=== PATIENT | female | born 1980 | race Two or more races ===

== ENCOUNTER 2022-12-10 11:49 | Outpatient (REF) | payer MEDICAID, SELFPAY ==
[2022-12-10 15:40] LABS: TSH reflex Free T4 6.78 uIU/mL (0.32-4.0)
[2022-12-10 16:10] LABS: Free T4 (Free Thyroxine) 0.81 ng/dL (0.71-1.85)
== END 2022-12-10 11:50 | disposition home or self-care (01) ==
LOC: HO.CHCLDS 11:49
PROVIDERS: Visit Provider Family Medicine
DX: E03.9 Hypothyroidism, unspecified (principal)
CPT/HCPCS: 36415; 84439; 84443

== ENCOUNTER 2023-02-17 12:03 | Outpatient (REF) | payer MEDICAID, SELFPAY ==
[2023-02-17 14:50] LABS: TSH reflex Free T4 6.81 uIU/mL (0.32-4.0)
[2023-02-17 15:21] LABS: Free T4 (Free Thyroxine) 0.78 ng/dL (0.71-1.85)
== END 2023-02-17 12:04 | disposition home or self-care (01) ==
LOC: HO.CHCLDS 12:03
PROVIDERS: Visit Provider Family Medicine
DX: E03.9 Hypothyroidism, unspecified (principal)
CPT/HCPCS: 36415; 84439; 84443

== ENCOUNTER 2023-03-10 14:50 | Outpatient (REF) | payer MEDICAID, SELFPAY ==
[2023-03-10 17:44] LABS: Eosinophils Absolute Auto 0.2 X10*3/uL (0.0-0.4); Eosinophils Percent Auto 1.3 % (0-4); Imm Gran Pct Auto 0.4 % (0.0-0.4); MANUAL DIFF FLAG SCAN; Mean Corpuscular Hemoglobin 29.3 pg (27.0-33.0); NRBC Pct Auto 0.3 /100WBC (0.0-0.2); PLT CLUMP 1; SCAN SMEAR FLAG 1
[2023-03-10 17:46] LABS: Basophils Percent Auto 0.4 % (0-2); Hemoglobin 14.1 g/dl (12.0-16.0); Imm Gran Abs Auto 0.04 X10*3/uL (0.00-0.03); Lymphocytes Absolute Auto 0.8 X10*3/uL (1.2-4.9); Lymphocytes Percent Auto 6.8 % (20-40); Mean Corpuscular HGB Conc 32.8 g/dl (31.0-35.0); Mean Corpuscular Volume 89.2 fL (80.0-98.0); Mean Platelet Volume 12.2 fL (9.4-12.3); Monocytes Absolute Auto 0.4 X10*3/uL (0.1-1.2); Monocytes Percent Auto 3.2 % (2-11); Neutrophils Percent Auto 87.9 % (45-73); Red Blood Count 4.82 X10*6/uL (4.20-5.50); Red Cell Distribution Width 13.2 % (11.0-16.0)
[2023-03-10 17:48] LABS: Alanine Aminotransferase 18 U/L (0-31); Albumin Level 4.5 g/dL (3.5-5.0); Alkaline Phosphatase 96 U/L (39-117); Anion Gap 14 (12-20); Aspartate Amino Transferase 21 U/L (5-31); Bilirubin Total 0.6 mg/dL (0.0-1.0); Blood Urea Nitrogen 15 mg/dL (9-16); C Reactive Protein 0.27 mg/dL (< or = 0.50); Calcium 9.3 mg/dL (8.4-10.2); Carbon Dioxide 27 mmol/L (22-29); Chloride 101 mmol/L (96-108); Estimated Glomerular Filt Rate > 60; Glucose Random 97 mg/dL (60-115); Potassium 3.8 mmol/L (3.3-5.1); Sodium 138 mmol/L (135-145)
[2023-03-10 17:51] LABS: PLT ABN DIST 1
[2023-03-10 17:52] LABS: White Blood Count 11.4 X10*3/uL (4.8-10.8)
[2023-03-10 18:58] LABS: SLIDE REVIEW VERIFIED
[2023-03-10 18:59] LABS: Influenza A PCR NEGATIVE (Negative); Influenza B PCR NEGATIVE (Negative); Resp Syncy Virus RNA Qual PCR NEGATIVE (Negative); SARS COV2 PCR INHOUSE NEGATIVE (Negative)
== END 2023-03-10 14:51 | disposition home or self-care (01) ==
LOC: HO.CHCLDS 14:50
PROVIDERS: Visit Provider Family Medicine
DX: R52 Pain, unspecified (principal); Z11.52 Encounter for screening for COVID-19
CPT/HCPCS: 0241U; 36415; 80053; 85025; 86140

== ENCOUNTER 2023-04-11 15:27 | Outpatient (REF) | payer MEDICAID, SELFPAY ==
[2023-04-11 18:11] LABS: TSH reflex Free T4 5.13 uIU/mL (0.32-4.0)
[2023-04-11 19:22] LABS: Free T4 (Free Thyroxine) 1.04 ng/dL (0.71-1.85)
== END 2023-04-11 15:28 | disposition home or self-care (01) ==
LOC: HO.CHCLDS 15:27
PROVIDERS: Visit Provider Family Medicine
DX: E03.9 Hypothyroidism, unspecified (principal)
CPT/HCPCS: 36415; 84439; 84443

== ENCOUNTER 2023-07-25 08:18 | Outpatient (REF) | payer MEDICAID, SELFPAY ==
[2023-07-26 15:48] LABS: Follicle Stimulating Hormone 18.9 mIU/mL
[2023-07-28 17:19] LABS: Anti-Mullerian Hormone-Female 0.34 ng/mL (0.01-2.99)
[2023-07-30 01:14] LABS: Estradiol Ultra Sensitive 32 pg/mL
== END 2023-07-25 08:19 | disposition home or self-care (01) ==
LOC: HO.CHCLDS 08:18
PROVIDERS: Visit Provider Family Medicine
DX: Z31.69 Encounter for other general counseling and advice on procreation (principal); N93.9 Abnormal uterine and vaginal bleeding, unspecified; R52 Pain, unspecified
CPT/HCPCS: 36415; 82166; 82670; 83001; 84443

== ENCOUNTER 2023-12-27 09:54 | Outpatient (REF) | payer MEDICAID, SELFPAY ==
[2023-12-27 14:41] LABS: MANUAL DIFF FLAG NO
[2023-12-27 14:44] LABS: Basophils Absolute Auto 0.1 X10*3/uL (0.0-0.2); Basophils Percent Auto 0.8 % (0-2); Eosinophils Absolute Auto 0.1 X10*3/uL (0.0-0.4); Eosinophils Percent Auto 1.7 % (0-4); Hemoglobin 13.6 g/dl (12.0-16.0); Imm Gran Abs Auto 0.03 X10*3/uL (0.00-0.03); Imm Gran Pct Auto 0.4 % (0.0-0.4); Lymphocytes Percent Auto 36.5 % (20-40); Mean Corpuscular HGB Conc 33.2 g/dl (31.0-35.0); Mean Corpuscular Hemoglobin 29.4 pg (27.0-33.0); Mean Corpuscular Volume 88.7 fL (80.0-98.0); Mean Platelet Volume 11.3 fL (9.4-12.3); Monocytes Absolute Auto 0.5 X10*3/uL (0.1-1.2); Monocytes Percent Auto 5.7 % (2-11); Neutrophils Absolute Auto 4.6 x10*3/uL (2.0-8.3); Neutrophils Percent Auto 54.9 % (45-73); Platelet Count 245 X10*3/uL (160-400); Red Blood Count 4.62 X10*6/uL (4.20-5.50); Red Cell Distribution Width 13.5 % (11.0-16.0); White Blood Count 8.3 X10*3/uL (4.8-10.8)
[2023-12-27 14:59] LABS: Alanine Aminotransferase 17 U/L (0-31); Albumin Level 4.5 g/dL (3.5-5.0); Alkaline Phosphatase 84 U/L (39-117); Anion Gap 14 (12-20); Aspartate Amino Transferase 21 U/L (5-31); Bilirubin Total 0.5 mg/dL (0.0-1.0); Blood Urea Nitrogen 9 mg/dL (9-16); C Reactive Protein 0.11 mg/dL (< or = 0.50); Calcium 9.8 mg/dL (8.4-10.2); Carbon Dioxide 22 mmol/L (22-29); Chloride 105 mmol/L (96-108); Estimated Glomerular Filt Rate > 60; Glucose Random 82 mg/dL (60-115); Potassium 4.2 mmol/L (3.3-5.1); Sodium 137 mmol/L (135-145)
[2023-12-27 15:12] LABS: Rheumatoid Factor < 13.0 IU/mL (<15.0)
[2023-12-27 15:24] LABS: Erythrocyte Sedimentation Rate 11 MM/HR (0-20)
[2023-12-28 04:56] LABS: HBsAGNum1 0.35 S/CO (0.00-0.99); HIV AB/AG Nonreactive (Nonreactive); HIV Num 1 0.05 S/CO (0.00-0.99); Hepatitis B Surface Antigen Negative (Negative); ~Hepatitis C Antibody Nonreactive (Nonreactive)
[2023-12-30 14:43] LABS: Cyclic Citrullinated Peptide <16 UNITS
[2024-01-04 10:58] LABS: Anti Nuclear Antibody Pattern Nuclear, Homogeneous; Anti Nuclear Antibody Screen POSITIVE (NEGATIVE)
== END 2023-12-27 09:55 | disposition home or self-care (01) ==
LOC: HO.CHCLDS 09:54
PROVIDERS: Visit Provider Family Medicine
DX: M25.50 Pain in unspecified joint (principal)
CPT/HCPCS: 36415; 80053; 85025; 85652; 86038; 86039; 86140; 86200; 86431; 86803; 87340; 87389

== ENCOUNTER 2024-04-09 11:34 | Outpatient (REF) | payer MEDICAID, SELFPAY ==
[2024-04-09 14:50] LABS: TSH reflex Free T4 2.15 uIU/mL (0.32-4.0)
--- OUTSIDE RECORDS SUMMARY | 2024-04-11 15:16 | XMS_ITS | Continuity of Care Document ---
Author Organization [facility] Address [address] [place] [address] Phone Care Team Providers Care Box Office Agent Name Role Phone Reuben ST, RVT, LUISANA, Mickey Unavailable U navailable Allergies, Adverse Reactions, Alerts Substance Reaction Status Criticality No Known Allergies Active No Inform ation Procedures Procedure Date Office/Outpt E&M Established 15 Mins- CT & [place] Duplex Scan-extrem Veins; Comp- CT & MA Duplex Scan-extrem Veins; Uni/ CT & MA O ct Endovenous Laser, 1st Vein- CT & MA Duplex Scan-extrem Veins; Uni/ CT & MA S Endovenous Laser, 1st Vein- CT & [place] Endovenous Laser, 1st Vein- CT & [place] Offic/outpt E&m Estab 5 Min Trial - Tele medicine Office/Oupt E&M New Pt 45 Mins Duplex Scan-extrem Veins; Comp Advance Directives Directive Yes / No Effective Date File Name No Information Encounters Encounter Description Practice Location Reason(s) For Visit Diagnoses Date Provider Providers Copied on Encounter Office/Outpt E&M Established 15 Mins- [place] & [place] [facility], [address] [place] [address] Dr Reyes [address]Ramila [place], [id number], [place] tel:[phone] CVR - [facility] Venous insufficiency (chronic) (peripheral)N evus, non-neoplasti c [address] RVT, RPVI Robert. [address] [place] [address], Ema wright [place], [id number], [place]. tel:[phone] Referring Provider: Joy Guerra MD, [address], [address]. tel:[phone] [facility], [address] [place] [address] [facility] [address]Ramila [place], [id number], [place] tel:[phone] CVR - [facility] Chronic venous hypertension (idiopathic) with other complications of bilateral lower extremity [address] RVT, RPVI Robert. [address] [place] [address], Ema wright [place], [id number], [place]. tel:[phone] Referring Provider: Mickey Alexis MD, RVT, RPVI, [address] [place] [address], [place], [address] . tel:[phone] [facility], [address] [place] [address] [facility] [address] Ramila Walker MD, [id number], [place] tel:[phone] CVR - [facility] Encounter for follow-up examination after completed treatment for conditions other than malignant neoplasmPain in right leg [address] RVT, RPVI Robert. [address] [place] [address], Ema wright [place], [id number], [place]. tel:[phone] Referring Provider: Mickey Alexis MD, RVT, RPVI, [address] [place] [address], [place], [address] . tel:[phone] [facility], [address] [place] [address] Dr Reyes [address]Ramila [place], [id number], [place] tel:[phone] CVR - [facility] Chronic venous hypertension (idiopathic) with inflammation of right lower extremity Sep-[address] RVT, RPVI Robert. [address] [place] [address] Suite [facility], Ema wright [place], [id number], [place]. tel:[phone] [facility], [address] [place] [address] Dr Reyes [address] 1000Ramila [place], [id number], [place] tel:[phone] CVR - [place] [facility] [place] Encounter for follow-up examination after completed treatment for conditions other than malignant neoplasmChron ic venous hypertension (idiopathic) with other complications of left lower extremity Sep-3 0- [address] RVT, RPVI Robert. [address] [place] [address], [place] [address], Ema wright [place], [id number], [place]. tel:[phone] Referring Provider: Mickey Alexis MD, RVT, RPVI, [address] [place] [address], [place], [address] . tel:[phone] [facility], [address] [place] [address] Dr Reyes [address]Suite Ramila Walker MD, [id number], [place] tel:[phone] CVR - [facility] Varicose veins of left lower extremity with other complications Sep-[address] RVT, RPVI Robert. [address] [place] [address], [place] [address], Ema wright [place], [id number], [place]. tel:[phone] [facility], [address] [place] [address] Dr Reyes [address] Ramila Walker MD, [id number], [place] tel:[phone] CVR - [facility] Chronic venous hypertension (idiopathic) with inflammation of left lower extremity Sep-[address] RVT, RPVI Robert. [address] [place] [address], Suite [facility], Ema wright [place], [id number], [place]. tel:[phone] [facility], [address] [place] [address] Dr Reyes 1000SuRamila anderson MD, [id number], [place] tel:[phone] CVR - [facility] No Information Sep-[address] RVT, RPVI Robert. [address] [place] [address], Suite [facility], Ema wright [place], [id number], [place]. tel:[phone] Offic/outpt E&m Estab 5 Min Trial - Telemedicine [facility], [address] [place] [address] [facility] [address] 1000Ramila [place], [id number], tel:[phone] [facility] - [place] [facility] [place] Localized edemaCramp and spasmRestless legs syndromeVenou s insufficiency (chronic) (peripheral) 4 Delonte Degroot. [address] [place] [address], Ema wright [place], [id number], [place]. tel:[phone] Referring Provider: Mickey Alexis MD, LELOT, [facility], [address] [place] [address], [place], [address] . tel:[phone] Office/Oupt E&M New Pt 45 Mins [facility], [address] [place] [address] Dr Reyes 1000[facility] 1000Ramila [place], [id number], [place] tel:[phone] [facility] - [place] [facility] [place] Pain in right lower legPain in left lower legLocalized edemaCramp and spasmRestless legs syndromeVenou s insufficiency (chronic) (peripheral) [address] FACS KEITH Hua. [address] [place] [address], [place], [address], [place]. tel:[phone] Referring Provider: Mickey Alexis MD, KEITH, [facility], [address] [place] [address], [place], [address] . tel:[phone] [facility], [address] [place] [address] [facility] 1000[address] 1000Ramila MD, [id number], [place] tel:[phone] CV[facility] - [place] [facility] [place] Varicose veins of bilateral lower extremities with pain [address] FACS KEITH Hua. [address] [place] [address], [place], [address], [place]. tel:[phone] Referring Provider: Mickey Alexis MD, KEITH, [facility], [address] [place] [address], [place], [address] . tel:[phone] Family History Family Member Type Diagnosis Age At Onset No Information Payers Payer name Insurance type Covered republican ID Lan baron(s) Medical Assistance DIMITRIS [id number] Social History Type Description Quantity Date Captured Comments Alcohol Use Details Unknown Caffeine Use Details Unknown Tobacco Use Status No Information Smoking Status Former Smoker Non-Smoking Tobacco Use Details : No Details Available : No Details Available Sex Female Vital Signs Date / Time: Height Weight BMI Pulse Rate Blood Pressure Temperature Respiratory Rate Body Surface Area Head Circumference Head Circ. Percentile Wt./Zachary. Percentile BMI percentile Pulse Ox Inhaled Ox 90.720 kg (200.00 lbs) 29.6 6 kg/m eter (2) 120/70 mm[Hg] Chief Complaint And Reason For Visit No Information Reason For Referral Reason For Referral No Information Plan Of Treatment Date Type Action Status Goal Tobacco cessation counseling completed Goal Diet education completed Goal Tobacco cessation counseling completed Goal Tobacco cessation counseling completed Goal Diet education completed Referral Ordered: Weight management: Referral to physician timeframe: 3 Months (related to Body mass index (BMI) 29.0-29.9, adult) ordered Referral Ordered: Weight management: Referral to physician timeframe: 3 Months (related to Body mass index (BMI) 29.0-29.9, adult) ordered History Of Present Illness Encounter Date Complaint History Of Prese nt Illness No Information Functional Status Date Functional Assessmen t No Information Instructions Date Instruction Additional Infor mation Patient education booklet given Related to Venous insufficiency (chronic) (peripheral) Lifestyle education Related to B karina mass index (BMI) 29.0-29.9, adult Diet education Related to Body mass index (BMI) 29.0-29.9, adult Giving Encouragement to exercise Related to Body mass index (BMI) 29.0-29.9, adult Patient education booklet given Related to Localized edema Compression stocking usage as conservative measure Related to Pain in right lower leg Patient education booklet given Related to Pain in right lower leg Lifestyle education Related to B karina mass index (BMI) 29.0-29.9, adult Giving Encouragement to exercise Related to Body mass index (BMI) 29.0-29.9, adult Diet education Related to Body mass index (BMI) 29.0-29.9, adult Assessments Type Assessment Date assessment Venous insufficiency (chronic) ( peripheral) assessment Nevus, non-neoplastic 4 Patient Care Teams Name Effective Dates (start - stop) Status Members No Information
== END 2024-04-09 11:35 | disposition home or self-care (01) ==
LOC: HO.CHCLDS 11:34
PROVIDERS: Visit Provider Family Medicine
DX: E03.9 Hypothyroidism, unspecified (principal)
CPT/HCPCS: 36415; 84443

== ENCOUNTER 2024-10-22 08:01 | Outpatient (REF) | payer MEDICAID, SELFPAY ==
[2024-10-22 14:29] LABS: TSH reflex Free T4 6.58 uIU/mL (0.32-4.0)
[2024-10-22 15:03] LABS: Free T4 (Free Thyroxine) 1.07 ng/dL (0.71-1.85)
== END 2024-10-22 08:02 | disposition home or self-care (01) ==
LOC: HO.CHCLDS 08:01
PROVIDERS: Visit Provider Family Medicine
DX: E03.9 Hypothyroidism, unspecified (principal)
CPT/HCPCS: 36415; 84439; 84443

== ENCOUNTER 2024-11-21 09:53 | Outpatient (REF) | payer MEDICAID, SELFPAY ==
--- OUTSIDE RECORDS SUMMARY | 2024-09-12 08:04 | XMS_ITS | Continuity of Care Document ---
Author Organization [facility] Address [address] [place] [address] Phone Care Team Providers Care Railroad Signal And Switch Operator Name Role Phone Reuben ST, RVT, LUISANA, Mickey Unavailable U navailable Allergies, Adverse Reactions, Alerts Substance Reaction Status Criticality No Known Allergies Active No Inform ation Procedures Procedure Date Sngl/mx Inj Scleros-veins; [place] Office/Outpt E&M Established 15 Mins- CT & [...] Diagnoses Date Provider Providers Copied on Encounter [facility], [address] 1000[address] 1000Ramila [place], [id number], [place] tel:[phone] CVR - [place] - [place] No Information [address] RVT, LUISANA Arevalo. [address] [place] [address], Ema wright [place], [id number], [place]. tel:[phone] [facility], [address] [place] [address] Dr Reyes [address] 1000Ramila MD, [id number], [place] tel:[phone] CVR - [place] - [place] Nevus, non-neoplasti c 5 Mollitor SABRA Pate. [address] [place] [address], [place] [address], Ema wright [place], [id number], [place]. tel:[phone] Referring Provider: Joy Guerra MD, [address], [address]. tel:[phone] Office/Outpt E&M Established 15 Mins- CT & [facility], [address] [place] [address] [facility] 1000[address] 1000Ramila [place], [id number], [place] tel:[phone] CVR - [facility] Venous insufficiency (chronic) (peripheral)N evus, non-neoplasti c [address] RVT, LUISANA Arevalo. [address] [place] [address], Ema wright [place], [id number], [place]. tel:[phone] Referring Provider: Joy Guerra MD, [address], [address]. tel:[phone] [facility], [address] [place] [address] Dr Reyes 1000[address] 1000Ramila MD, [id number], [place] tel:[phone] CVR - [facility] Chronic venous hypertension (idiopathic) with other complications of bilateral lower extremity [address] RVT, LUISANA Arevalo. [address] [place] [address], [place] [address], Ema wright MA, [id number], [place]. tel:[phone] Referring Provider: Mickey Alexis MD, KEITH, LUISANA, [address] [place] [address], [place], [address] . tel:[phone] [facility], [address] [place] [address] Dr Reyes [address]Suite Ramila Walker MD, [id number], [place] tel:[phone] CVR - [facility] Encounter for follow-up examination after completed treatment for conditions other than malignant neoplasmPain in right leg Oct-[address] RVT, LUISANA Arevalo. [address] [place] [address], Ema wright [place], [id number], [place]. tel:[phone] Referring Provider: Mickey Alexis MD, RVT, LUISANA, [address] [place] [address], [place], [address] . tel:[phone] [facility], [address] [place] [address] Dr Reyes 1000Suite Ramila Walker MD, [id number], [place] tel:[phone] CVR [facility] Chronic venous hypertension (idiopathic) with inflammation of right lower extremity Sep-[address] RVT, LUISANA Arevalo. [address] [place] [address], Ema wright [place], [id number], [place]. tel:[phone] [facility], [address] [place] [address] Dr Reyes [address]Suite Ramila Walker MD, [id number], [place] tel:[phone] CVR - [facility] Encounter for follow-up examination after completed treatment for conditions other than malignant neoplasmChron ic venous hypertension (idiopathic) with other complications of left lower extremity Sep-[address] RVT, LUISANA Arevalo. [address] [place] [address], Ema wright [place], [id number], [place]. tel:[phone] Referring Provider: Mickey Alexis MD, RVT, LUISANA, [address] [place] [address], [place], [address] . tel:[phone] [facility], [address] [place] [address] Dr Reyes 1000Suite Ramila Walker MD, [id number], [place] tel:[phone] CVR [facility] Varicose veins of left lower extremity with other complications Sep- [address] RVT, RPVI Robert. [address] [place] [address], [place], [id number], [place]. tel:[phone] [place] [facility] MD DAVIS, [address] [place] [address] Dr Reyes 1000SuRamila anderson MD, [id number], [place] tel:[phone] CVR - [place] Chronic venous hypertension (idiopathic) with inflammation of left lower extremity Sep- [address] RVT, LUISANA Arevalo. [address] [place] [address], Ema wright [place], [id number], [place]. tel:[phone] [place] [facility], [address] [place] [address] Dr Reyes 1000[facility] Ramila Walker MD, [id number], [place] tel:[phone] CV[place] - [place] No Information Dec- [address] RVT, RPVI Robert. [address] [place] [address], Ema wright [place], [id number], [place]. tel:[phone] Offic/outpt E&m Estab 5 Min Trial - [facility] MD DAVIS, [address] [place] [address] Dr Reyes 1000[facility] Ramila Walker MD, [id number], [place] tel:[phone] [facility] - [place] Localized edemaCramp and spasmRestless legs syndromeVenou s insufficiency (chronic) (peripheral) 4 Delonte Degroot. [address] [place] [address], Ema wright [place], [id number], [place]. tel:[phone] Referring Provider: Mickey Alexis MD, KEITH, LUISANA, [address] [place] [address], [place], [address] . tel:[phone] Office/Oupt E&M New Pt 45 Mins [facility] MD DAVIS, [address] [place] [address] Dr Reyes 1000Suite Ramila Walker MD, [id number], [place] tel:[phone] [facility] - [place] Pain in right lower legPain in left lower legLocalized edemaCramp and spasmRestless legs syndromeVenou s insufficiency (chronic) (peripheral) [address] FACS T LUISANA Hua. [address] [place] [address], [place] [address], [place] [address], [place]. tel:[phone] Referring Provider: Mickey Alexis MD, KEITH, [facility], [address] [place] [address], [place], [address] . tel:[phone] [facility], [address] [facility] [address], [place], [id number], tel:[phone] [facility] [place] Varicose veins of bilateral lower extremities with pain [address] FACS LELOT LUISANA Hua. [address] [place] [address], [place] [address], [place], [address], [place]. tel:[phone] Referring Provider: Mickey Alexis MD, KEITH, [facility], [address] [place] [address], [place], [address] . tel:[phone] Family History Family Member Type Diagnosis Age At Onset No Information Payers Payer name Insurance type Covered constitution party ID Authorami baron(s) Self Pay 09 Social History Type Description Quantity Date Captured Comments Sex Female Smoking Status No Information Chief Complaint And Reason For Visit No Information Reason For Referral Reason For Referral No Information Plan Of Treatment Date Type Action Status Goal Diet education completed Goal Tobacco cessation counseling completed Goal Tobacco cessation counseling completed Goal Diet education completed Goal Tobacco cessation counseling completed Referral Ordered: Weight management: Referral to [...] No Information Instructions Date Instruction Additional Infor janette Giving Encouragement to exercise Related to Body mass index (BMI) 29.0-29.9, adult Diet education Related to Body mass index (BMI) 29.0-29.9, adult Lifestyle education Related to B karina mass index (BMI) 29.0-29.9, adult Patient education booklet given Related to Venous insufficiency (chronic) (peripheral) Patient education booklet given Related to Localized edema Diet education Related to Body mass index (BMI) 29.0-29.9, adult Giving Encouragement to exercise Related to Body mass index (BMI) 29.0-29.9, adult Lifestyle education Related to B karina mass index (BMI) 29.0-29.9, adult Patient education booklet given Related to Pain in right lower leg Compression stocking usage as conservative measure Related to Pain in right lower leg Assessments Type Assessment Date No Information Patient Care Teams Name Effective Dates (start - stop) Status Members No Information
--- OUTSIDE RECORDS SUMMARY | 2024-11-21 10:38 | XMS_ITS | Clinical Summary ---
Author Organization [facility] Address [address] [place] [address] Phone Care Team Providers Care Transit Planning Manager Name Role Phone Joy Saavedra MD Primary Care Provider [phone] Allergies No known active allergies Medications gabapentin (NEURONTIN) 100 mg capsule Take 3 capsules (300 mg total) by mouth 3 (three) times a day. Active pot,mag citrate-sodium bicarb 10 mEq powder in packet Take by mouth. Active coconut oil, bulk, oil Active levothyroxine (SYNTHROID, LEVOTHROID) 112 mcg tabletIndicatio ns:Hypothyroidi sm, unspecified type Take 1 tablet (112 mcg total) by mouth 1 (one) time each day. 45 tablet 1 11/21/19 25 Active levothyroxine (SYNTHROID, LEVOTHROID) 100 mcg tablet Take 1 tablet (100 mcg total) by mouth 1 (one) time each day before breakfast. 025 Discontinued Active Problems No known active problems Encounters Date Type Department Care Team Description 11/20/2024 12:00 PM EDT Office Visit Endocrinology - [address] [address] Gisselle Meyer MD Hypothyroidism, unspecified type (Primary Dx) 10/08/2024 Telephone Endocrinology [address] [id number] [place], [place] [phone] Tami Salinas [place] Request For Order(s) (Thyroid labs) from Last 3 Months Surgical History Surgery Date Site/Laterality Comments SECTION PROCEDURE: HISTORICAL DELIVERY COLONOSCOPY W/ POLYPECTOMY 04/11/2024 TA x 1 Medical History Medical History Date Comments Thyroid condition DX:Thyroid con dition Hypothyroidism Fibromyalgia Hx of Lashell thyroiditis Acute headache Constipation Social History Tobacco Use Types Packs/Day Years Used Date Smoking Tobacco: Former Smokeless Tobacco: Never Alcohol Use Standard Drinks/Week Comments Never 0 (1 standard drink = 0.6 oz pur e alcohol) Interpersonal Safety Answer Date Record ed Physical Abuse 04/11/2024 Verbal Abuse 04/11/2024 Comments No Sex and Gender Information Value Date Recorded Sex Assigned at Female 04/09/2024 1:41 PM EST Legal Sex Female 6:15 PM EST Gender Identity Not on file Sexual Orientation Not on file Obstetrics History Last Filed Vital Signs Vital Sign Reading Time Taken Comments Blood Pressure 105/71 11/20/2024 11:49 AM EDT Pulse 62 11/20/2024 11:49 AM EDT Temperature 36.6 C (97.9 F) 04/16/2024 8:34 AM EST Respiratory Rate 12 11/20/2024 11:49 AM EDT Oxygen Saturation 98% 04/16/2024 8:34 AM EST Inhaled Oxygen Concentration - - Weight 101 kg (222 lb) 11/20/2024 11:49 AM EDT Height 175.3 cm (5' 9 ) 11/20/2024 11:49 AM EDT Body Mass Index 32.78 11/20/2024 11:49 AM EDT Plan of Treatment Upcoming Encounters Date Type Department Care Team (Late st Contact Info) Description 11/30/2024 8:00 AM EDT Evaluation [facility] [place] [facility] [address] [place] [address] Nisha Wong PT 01/09/2025 4:30 PM EDT Office Visit Endocrinology [address] [phone] Gisselle Meyer MD [address] [place] [address] 06/04/2025 9:00 AM EST Consult Bariatric Surgery - [place] [facility] [address] [place] [address] Luna Summers MD [address] [place] [address] [address] [place] [address] Health Maintenance Due Date Last Done Comments DTaP,Tdap,and Td Vaccines (1 - Tdap) 12/21/1999 Hepatitis B Vaccines (1 of 3 - 19+ 3-dose series) 12/21/1999 Cervical Cancer Screening: P ap Smear 2001 HPV Vaccines (2 - 3-dose SCD M series) 03/11/2022 02/11/2022 Social Influencers of Health Screening 04/03/2022 COVID-19 Vaccine (4 - 2023-2 5 season) 2024 05/14/2021, 12/11/2020, 08/21/2020 Depression Screening 05/02/2024 Influenza Vaccine (#1) 2024 , 04/02/2021, 04/17/2017 Breast Cancer Screening 02/28/2026 02/29/20 24, 02/23/2023, 02/19/2022 Pneumococcal Vaccine: Pediatrics (0 to 5 Years) and At-Risk Patients (6 to 49 Years) Aged Out 04/17/2017 No longer eligible b ased on patient's age to complete this topic HIV Screening Completed 12/27/2023 Hepatitis C Screening Completed 12/27/2023 HIB Vaccines Aged Out No longer eligi ble based on patient's age to complete this topic Hepatitis A Vaccines Aged Out No long er eligible based on patient's age to complete this topic IPV Vaccines Aged Out No longer eligi ble based on patient's age to complete this topic MMR Vaccines Aged Out No longer eligi ble based on patient's age to complete this topic Meningococcal ACWY Vaccine Aged Out N o longer eligible based on patient's age to complete this topic Meningococcal B Vaccine Aged Out No l onger eligible based on patient's age to complete this topic RSV Immunization Patients Under 20 months Aged Out No longer eligible b ased on patient's age to complete this topic Varicella Vaccines Aged Out No longer eligible based on patient's age to complete this topic Procedures Procedure Name Priority Date/Time Associated Diagnosis Comments JC SCREENING DIGITAL Routine 02/29/2024 10:20 AM EDT from Last 3 Months or Most Recently Relevant to Health Maintenance Results * [facility] SCREENING DIGITAL (02/29/2024 10:20 AM EDT) Anatomical Region Laterality Modality Mammography 02/29/2024 8:32 AM EDT Narrative 02/29/2024 10:20 AM EDT [facility] Diagnostic Imaging Department [address] [place] [address] Patient: LAZARO CALLAWAY./Age/Sex: 1980 - 43 - F Unit#: [id number] Location/Status: [facility] CLI Mnemonic/Ordering Site: [facility] Ordering Physician: JOY SAAVEDRA MD [facility] Screening Digital - 02/29/24 - [id number] Report Status:Signed EXAM: [facility] Screening Digital EXAM DATE AND TIME: 02/29/2024 8:56 AM HISTORY: Screening. Maternal grandmother had breast carcinoma. COMPARISON: 02/23/23, 02/19/22, 02/28/20 TECHNIQUE: Bilateral digital breast tomosynthesis was performed in the CC and MLO projections. Computer aided detection with Orad 3D 3.1 was employed. TISSUE DENSITY: b. There are scattered areas of fibroglandular density. FINDINGS: No suspicious masses, grouped microcalcifications, or areas of architectural distortion are seen. The skin and vascularity are unremarkable. IMPRESSION: Stable mammographic appearance of the breasts. No evidence of malignancy is seen. A negative mammogram in the presence of a clinically suspicious palpable abnormality does not preclude the possibility of malignancy or alter the indications for biopsy. BI-RADS: Category 1: Negative RECOMMENDATION(S): 1: Routine screening mammogram BILATERAL in 1 year. [facility] performed at [facility] [address] [place] [address] Dictating Physician: HAYLEY MONAHAN MD Electronically Signed by: HAYLEY MONAHAN MD Dic Date/Time: 02/29/24 1019 Sign date/Time: 02/29/24 1020 Procedure Note Hayley Monahan MD - 03/03/2024 [facility] Diagnostic Imaging Department [address] [place] [address] Patient: LAZARO CALLAWAY /Age/Sex: 1980 - 43 -F Unit#: [id number] Location/Status: [facility] Mnemonic/Ordering Site: [facility] Ordering Physician: JOY SAAVEDRA MD [facility] Screening Digital - [id number] Report Status:Signed EXAM: [facility] Screening Digital EXAM DATE AND TIME: 02/29/2024 8:56 AM HISTORY: Screening. Maternal grandmother had breast carcinoma. COMPARISON: 02/23/23, 02/19/22, 02/28/20 TECHNIQUE: Bilateral digital breast tomosynthesis was performed in the CCand MLO projections. Computer aided detection with iCAD ProFound AI 3D 3.1was employed. TISSUE DENSITY: b. There are scattered areas of fibroglandular density. FINDINGS: No suspicious masses, grouped microcalcifications, or areas ofarchitectural distortion are seen. The skin and vascularity are unremarkable. IMPRESSION: Stable mammographic appearance of the breasts. No evidence of malignancyis seen. A negative mammogram in the presence of a clinically suspicious palpable abnormality does not preclude the possibility of malignancy or alter the indications for biopsy. BI-RADS: Category 1: Negative RECOMMENDATION(S): 1: Routine screening mammogram BILATERAL in 1 year. [facility] performed at [facility] at [address] [address] Dictating Physician: HAYLEY MONAHAN MD Electronically Signed by: HAYLEY MONAHAN MD Dic Date/Time: 02/29/24 1019 Sign date/Time: 02/29/24 1020 Joy Saavedra MD IMG BI PROCEDURES Final Resul t from Last 3 Months or Most Recently Relevant to Health Maintenance Insurance MEDICAID - [place] Care Teams Transit Planning Manager Relationship Specialty Start Date End Date Joy Saavedra MD [address] [place] [phone] PCP - General 06/18/22
--- OUTSIDE RECORDS SUMMARY | 2024-11-21 10:38 | XMS_ITS | Encounter Summary ---
Author Organization [facility] [facility] [employer] Address [address] [place] [address] Care Team Providers Care Hearth Feeder Name Role Phone Joy Guerra MD Primary Care Provider [phone] Reason for Visit * Reason Onset Date Comments Referral 12/13/2023 Encounter Details Date Type Department Care Team ([facility] st Contact Info) Description 12/13/2023 Telephone [facility] MEDICINE [address] [place] [address] Joy Guerra MD [address] [place], [place] [phone] Referral Social History Tobacco Use Types Packs/Day Years Used Date Smoking Tobacco: Never Passive Smoke Exposure: Never Smokeless Tobacco: Never Alcohol Use Standard Drinks/Week Comments Never 0 (1 standard drink = 0.6 oz pur e alcohol) Depression Answer Date Recorded Patient Health Questionnaire-9 Score 1 09/19/2023 Patient Health Questionnaire-9 Score 1 09/19/2023 Last PHQ-9: Questionnaire Data Not on file 0 09/19/2023 Housing Stability Answer Date Recorded What is your housing situation today? I have housing today, but I am worried about losing housing in the future 06/17/[address] you li ve. Do you have problems with any of the following? None of the above 06/17/2023 Food Insecurity Answer Date Recorded Within the past 12 months, y ou worried that your food would run out before you got money to buy more: Never True 06/17/2023 Within the past 12 months,th e food you bought just didn't last and you didn't have enough money to get more: Never True Transportation Answer Date Recorded In the past 12 months, has l ack of transportation kept you from medical appts, meetings, work or from getting things needed for daily living? No 06/17/2023 Utilities Answer Date Recorded In the past 12 months, has t he electric, gas, oil or water company threatened to shut off services in your home? No 06/17/2023 Depression Answer Date Recorded Patient Health Questionnaire-2 Score 0 09/19/2023 Comments Unknown Sex and Gender Information Value Date Recorded Sex Assigned at Female 03/01/2022 10:39 AM EDT Legal Sex Female 10:39 AM EDT Gender Identity Female 03/01/2022 10:39 AM EDT Sexual Orientation Straight 03/01/2022 10 :39 AM EDT documented as of this encounter Miscellaneous Notes * Telephone Encounter - Agapito Beck - 12/13/2023 1:20 PM EDT Tc from patient calling to request the referral for Gastro to be sent to [facility]: [facility] at [address], [place] [address] fax number [phone] documented in this encounter Plan of Treatment Upcoming Encounters Date Type Department Care Team (Late st Contact Info) Description 03/01/2025 8:00 AM EDT Office Visit [facility] ADULT DENTAL [address] [place] [address] Vilma Reina documented as of this encounter Visit Diagnoses Not on filedocumented in this encounter Additional Health Concerns Assessment Noted Time PHQ-9 Depression Total Score: 1 09/19/19 9:03 AM EDT documented as of this encounter Care Teams Hearth Feeder Relationship Specialty Start Date End Date Joy Guerra MD [address] [place] [address] PCP - General Family Medicine 05/25/21 Mickey Alexis Surgeon Vascular Surgery 02/24/23 Nito Sutton Fruit Receiver 02/18/23 documented as of this encounter
--- OUTSIDE RECORDS SUMMARY | 2024-11-21 10:38 | XMS_ITS | Clinical Summary ---
Author Organization [facility] Address [address] [place] [address] Care Team Providers Care Ship Scaler Name Role Phone Unavailable Primary Care Provider Unavailabl e Source Comments PLEASE NOTE, if this patient is a minor, it may be UNLAWFUL to discuss sensitive information that is contained in these records (such as FAMILY PLANNING, MENTAL HEALTH or SUBSTANCE ABUSE) with the minor patient's parent or other person without the patient's specific authorization.[facility] Social History Tobacco Use Types Packs/Day Years Used Date Smoking Tobacco: Never Assessed Social Connections Answer Date Recorded Social Connections and Isolation 0 10/27/2020 Financial Resource Strain Answer Date R ecorded Financial Resource Strain 0 2020 Stress Answer Date Recorded Stress 0 10/27/2020 Physical Activity Answer Date Recorded Physical Activity 0 10/27/2020 Food Insecurity Answer Date Recorded Food 0 10/27/2020 Transportation Needs Answer Date Record ed Transportation 0 10/27/2020 Housing Stability Answer Date Recorded Housing 0 10/27/2020 Safety and Environment Answer Date Boni rded Safety 0 10/27/2020 Utilities Answer Date Recorded Utilities 0 10/27/2020 Employment Answer Date Recorded Employment 0 10/27/2020 Comments Unknown Sex and Gender Information Value Date Recorded Sex Assigned at Not on file Legal Sex Female 6:17 AM PST Gender Identity Not on file Sexual Orientation Not on file Plan of Treatment Not on file Insurance [facility] SAFETY [place] DENTAL
[2024-11-21 12:44] LABS: Free T4 (Free Thyroxine) 0.91 ng/dL (0.71-1.85)
[2024-11-22 06:19] LABS: Rubeola IgG (Measles) 173.00 AU/mL
[2024-11-24 08:28] LABS: TS Negative Control Passed; TS Panel A 1; TS Panel B 0; TS Positive Control Passed; TSpotTB Negative (Negative)
== END 2024-11-21 09:54 | disposition home or self-care (01) ==
LOC: HO.HHCL 09:53
PROVIDERS: PCP Family Medicine; Visit Provider Family Medicine
DX: Z01.84 Encounter for antibody response examination (principal); Z11.1 Encounter for screening for respiratory tuberculosis; Z11.59 Encounter for screening for other viral diseases; Z23 Encounter for immunization; E03.9 Hypothyroidism, unspecified
CPT/HCPCS: 36415; 84439; 84443; 86481; 86735; 86762; 86765; 86787